=== PATIENT | male | born 1985 | race Caucasian/White ===

== ENCOUNTER 2016-06-21 16:48 | Emergency (ER) | payer OTHER ==
[~2016-06-21] VITALS: Ht 172.7 cm; Wt 86.4 kg
[2016-06-21] MEDS ORDERED: CeFAZolin 1 GM/DEXTROSE 50 ML IV ONE ×2 (16:54→17:00)
[2016-06-21] MEDS ORDERED: MORPHINE SULFATE 4 MG/ML SYRINGE ONE (16:54)
[2016-06-21] MEDS ORDERED: ONDANSETRON HCL 4 MG/2 ML VIAL ONE (16:54)
[2016-06-21] MEDS ORDERED: PERTUSS(ACELL),DIPH,TET VAC/PF 0.5 ML VIAL IM ONE ×2 (16:55→17:00)
[2016-06-21] MEDS ORDERED: MORPHINE SULFATE 4 MG/ML SYRINGE IVP ONE (17:00)
[2016-06-21] MEDS ORDERED: ONDANSETRON HCL 4 MG/2 ML VIAL IVP ONE (17:00)
[2016-06-21 17:02] VITALS: BP 125/90
[2016-06-21] MEDS ORDERED: HYDROmorphone 2 MG/ML SYRINGE IVP ONE (17:15)
== END 2016-06-21 17:16 | disposition short-term general hospital (02) ==
LOC: EMS 16:50
DX: S51.812A Laceration without foreign body of left forearm, initial encounter (principal); S01.81XA Laceration without foreign body of other part of head, initial encounter; W45.8XXA Other foreign body or object entering through skin, initial encounter; Y93.89 Activity, other specified; Y92.098 Other place in other non-institutional residence as the place of occurrence of the external cause; Y99.8 Other external cause status
CPT/HCPCS: 90471; 90715; 96374; 96375; 99285; J0690; J1170; J2270; J2405